=== PATIENT | female | born 1995 | race Caucasian/White ===

== ENCOUNTER → 2024-11-20 07:49 | Outpatient (REF) | payer BC, SELFPAY | LOC: RAD 07:49 | PROVIDERS: ATTENDING PHYSICIAN Surgery; FAMILY PHYSICIAN Family Medicine | DX: D48.19 Other specified neoplasm of uncertain behavior of connective and other soft tissue (principal) | CPT/HCPCS: 70491; Q9967 ==

== ENCOUNTER 2024-11-26 06:22 | Day surgery (SDC) | payer BC, SELFPAY ==
[2024-11-26 12:52] VITALS: BMI 25.2
[2024-11-26 12:57] VITALS: BMI 25.2
[2024-11-26 12:58] VITALS: BP 159/98
[2024-11-26] MEDS: NEURONTIN 300 MG PO (13:04)
[2024-11-26] MEDS: TYLENOL 1000 MG PO (13:04)
[2024-11-26 13:05] LABS: Hematocrit 40.4 % (37.0-47.0); Hemoglobin 14.3 g/dL (12.0-16.0); Mean Corp Hgb Conc. 35.4 g/dL (33.0-37.0); Mean Corpuscular Volume 90.4 fL (81.0-99.0); Mean Platelet Volume 10.8 fL (7.4-10.4); Platelet Count 214 10^3/uL (130-400); Red Blood Cell Count 4.47 10^6/uL (4.20-5.40); Red Cell Dist. Width 12.2 % (11.5-14.5); White Blood Cell Count 6.2 10^3/uL (4.8-10.8)
[2024-11-26] MEDS: NORMOSOL-R/PLASMALYTE-A 1000 IV (13:05)
[2024-11-26 13:16] LABS: INR 1.02; PT 13.7 Sec (11.4-14.6)
[2024-11-26] MEDS: HEPARIN 5000 UNITS SC (14:00)
[2024-11-26 16:39] VITALS: BP 125/81
[2024-11-26 16:40] VITALS: BP 125/81; BP 159/98
[2024-11-26 16:55] VITALS: BP 127/73
[2024-11-26 17:00] VITALS: BP 122/71; BP 122/78; BP 126/87
[2024-11-26 17:15] VITALS: BP 128/75
--- NOTE | 2024-11-29 14:05 | W.IMMPOSTOP ---
Addendum entered and electronically signed by James Lopes MD 11/29/24 14:07:
Date of Surgery: November 26, 2024
Original Note:
Surgical Immed Post Op Note
-
Date of : 1995
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
Postoperative Diagnosis: Large left neck soft tissue tumor (final pathology pending)
Surgeon: James Lopes M.D.
Operation: Resection of a left-sided neck tumor
Anesthesia: General endotracheal anesthesia
Estimated Blood Loss: 10 cc
Drains: None
Specimen: Left-sided neck tumor
Findings: A large bulging soft tissue tumor in the left side of the neck extending into the chest and left axilla, abutting multiple vessels and surrounding muscles.
Complications: None
Procedure:The patient was taken to the operating room and placed in the usual supine position. After adequate general endotracheal anesthesia was established, the patient's left side of the neck was prepped and draped in the usual fashion. A large
bulging soft tissue tumor was identified on the left side of the neck, extending into the chest. A seven-centimeter incision was made over the mass with a number 10 blade, taken through the skin into the subcutaneous tissue. The underlying platysmal
muscle was divided. The tumor was identified by retracting the left sternocleidomastoid muscle medially. It was wrapped around the omohyoid muscle, which was freed. The tumor was freed from the surrounding muscles, including the omohyoid, scalenes,
levator scapulae, and trapezius. The tumor was noted to be extending into the chest and left axillary area. �The tumor was dissected off the surrounding vessels and carefully resected away from the vessels. The part of the tumor extending into the
chest and left axilla was able to deliver out into the neck. The tumor was resected completely and sent to pathology for a permanent section. Hemostasis was obtained. The platysmal muscle was approximated with #3-0 Vicryl in a running fashion. The
skin was approximated with #4-0 Monocryl in a running subcuticular fashion. Steri-strips and sterile dressings were applied. The procedure was completed with the correct final needle, sponge, and instrument counts. The patient was extubated and
transferred to the recovery room.
== END 2024-11-26 17:49 | disposition home or self-care (01) ==
LOC: SDS 06:22
PROVIDERS: ATTENDING PHYSICIAN Surgery
DX: D17.0 Benign lipomatous neoplasm of skin and subcutaneous tissue of head, face and neck (principal)
CPT/HCPCS: 21554; 88304; 85027; 85610; 86850; 86870; 86900; 86901; 86905; C1776